=== PATIENT | female | born 1950 | race African-American/Black ===

== ENCOUNTER → 2017-11-24 | Outpatient (CLI) | payer OTHER ==
[~2017-11-24] MED LIST: ASPI325T PO; AZIT250T74 PO; BEDSMIS4; CARV3.12 PO; FERR65TA PO; FURO20 PO; GNP3TAB PO; LISI-357 PO; NACL.65%I; OMEP20TA PO; POLY119S PO; POTA20IN3 PO; SPIR25 PO; SUPETAB30 PO; TRAZ50TA4 PO; TUMS500C PO; WHEEMIS3 XX; XALA0.00 EACH EYE; Z.0.OXYGENDME NC; Z.0.WALKERFRONT
--- NOTE | 2017-11-25 09:52 | RSPPFT ---
DATE OF PROCEDURE: 11/24/17 COMMENTS: VOLUMES DYNAMIC: FVC and FEV1 severely reduced. FLOWS: FEV1% normal; FEF 25-75 severely reduced. IMPRESSION: Very severe restricticve ventilatory defect with no large airways obstruction and no improvement post-bronchodilator. The reduction in terminal airflow could be due to the very low lung volumes.
== END ==
LOC: HRSP 09:00
PROVIDERS: ATTEND Pediatrics
DX: I34.0 Nonrheumatic mitral (valve) insufficiency (principal)
CPT/HCPCS: 94060